=== PATIENT | male | born 1955 | race Two or more races ===

== ENCOUNTER 2022-03-09 23:50 | Inpatient (IN) | payer MEDICARE, OTHER ==
[~2022-03-09] VITALS: Ht 170.2 cm; Wt 76.9 kg
--- NOTE | 2022-03-10 00:05 | NUR ---
TO ER BED 10. [id number] FROM [facility] FOR L SIDED, NON- RADIATING BURNING CP X 3 DAYS. PT IS ALERT AND ORIENTED. RR EVEN AND NONLABORED. CONNECTED TO POX AND HEART MONITOR.
--- NOTE | 2022-03-10 00:17 | NUR ---
IV LINE ESTABLISHED, RHAND 20G
--- NOTE | 2022-03-10 00:17 | NUR ---
PT AMBULATED TO BATHROOM, STEADY GAIT NOTED
--- NOTE | 2022-03-10 00:17 | NUR ---
COVID SWAB COLLECTED
--- NOTE | 2022-03-10 00:18 | NUR ---
XRAY AT BEDSIDE
[2022-03-10] MEDS ORDERED: NITROGLYCERIN PACKET 1 GM PACKET ONE (00:24)
[2022-03-10] MEDS ORDERED: FAMO20TA8 PO (00:27)
[2022-03-10] MEDS ORDERED: DAPA10TA PO (00:27)
[2022-03-10] MEDS ORDERED: PANT40TA49 PO (00:27)
[2022-03-10] MEDS ORDERED: APIX5TAB PO (00:27)
[2022-03-10] MEDS ORDERED: ROSU40TA PO (00:27)
[2022-03-10] MEDS ORDERED: AMIO200T5 PO (00:27)
[2022-03-10] MEDS ORDERED: CARV25TA2 PO (00:27)
[2022-03-10] MEDS ORDERED: TAMS-12 PO (00:27)
[2022-03-10] MEDS ORDERED: POTA20TA83 PO (00:27)
[2022-03-10] MEDS ORDERED: SPIR25TA6 PO (00:27)
[2022-03-10] MEDS ORDERED: CLOP75TA15 PO (00:27)
[2022-03-10] MEDS ORDERED: EZET10TA16 PO (00:27)
[2022-03-10] MEDS ORDERED: FURO40TA5 PO (00:27)
[2022-03-10] MEDS ORDERED: SACU1TAB PO (00:27)
[2022-03-10] MEDS ORDERED: NITROGLYCERIN PACKET 1 GM PACKET TOP ONE (00:30)
--- NOTE | 2022-03-10 00:43 | NUR ---
DANIEL FROM [facility] : [phone]
[2022-03-10 00:51] LABS: BASOPHILS # (AUTO) 0.2 K/uL (0.0-0.2); BASOPHILS % (AUTO) 2.1 % (0.0-2.0); EOSINOPHILS % (AUTO) 1.4 % (0.0-6.0); HEMATOCRIT 46 % (39-51); HEMOGLOBIN 14.8 g/dL (13.5-17.5); LYMPHOCYTES # (AUTO) 1.4 K/uL (0.8-4.8); LYMPHOCYTES % (AUTO) 16.3 % (20.0-44.0); MEAN CORPUSCULAR HGB CONC 32 g/dl (31.0-36.0); MEAN CORPUSCULAR VOLUME 86 fL (80-96); MONOCYTES # (AUTO) 0.6 K/uL (0.1-1.30); MONOCYTES % (AUTO) 7.5 % (2.0-12.0); NEUTROPHILS # (AUTO) 6.1 K/uL (1.8-8.9); NEUTROPHILS % (AUTO) 72.7 % (43.0-81.0); PLATELET COUNT (AUTO) 259 K/uL (150-450); RED BLOOD CELL COUNT(AUTO) 5.37 MIL/uL (4.5-6.0); WHITE BLOOD COUNT (AUTO) 8.5 K/uL (4.3-11.0)
[2022-03-10 00:58] LABS: CALCIUM, SERUM 8.3 mg/dL (8.5-10.1); CARBON DIOXIDE 21 mmol/L (21-32); CHLORIDE 109 mmol/L (98-107); CREATININE 1.4 mg/dL (0.6-1.3); GLUCOSE 153 mg/dL (74-106); POTASSIUM 3.5 mmol/L (3.5-5.1); SODIUM SERUM 139 mmol/L (136-145); UREA NITROGEN, BLOOD 24 mg/dL (7-18)
[2022-03-10] MEDS ORDERED: ONDANSETRON HCL/PF 4 MG/2 ML VIAL IVP PRN (02:30)
[2022-03-10] MEDS ORDERED: ACETAMINOPHEN 325 MG TABLET PO PRN (02:30)
[2022-03-10] MEDS ORDERED: MORPHINE SULFATE INJ 2 MG/ML DISP.SYRIN IV PRN (02:30)
[2022-03-10] MEDS ORDERED: Z GUARD REMEDY 4 OZ OINT TP PRN (02:30)
[2022-03-10] MEDS ORDERED: ZOLPIDEM TARTRATE 5 MG TABLET PO PRN (02:30)
--- NOTE | 2022-03-10 03:11 | NUR ---
REPORT GIVEN TO CARMINE THOMSON FOR JORGE
--- NOTE | 2022-03-10 03:20 | NUR ---
PATIENT IS GETTING TRANSFERRED TO 311-1 UNDER ACLS
--- NOTE | 2022-03-10 03:55 | NUR ---
MEDICAL CODERPRIVATE DUTY NURSE NOTE PATIENT ARRIVED FROM ER, ALERT/ORIENTED X 4, PT ABLE TO MAKE NEEDS KNOWN. PATIENT AMBULATED TO BED WITH STEADY GAIT USING CANE. PATIENT STABLE ON RA, NO S/S OF DISTRESS OR SOB NOTED, BREATHING EVEN AND UNLABORED. PATIENT PLACED ON EXTERNAL COMPOSING MACHINE OPERATOR READING V-PACING, HR: 61, PATIENT HAS PACEMAKER. PATIENT REPORTS MEDICAL HX OF STROKE, CAD, CABG, STENTS X 4, PACEMAKER, A. FIB. PATIENT STATES HE WAS RECENTLY HOSPITALIZED THIS MONTH FOR UTI. IV ACCESS ON RIGHT HAND #20G INTACT AND FLUSHING WELL, SALINE LOCKED. ALL BELONGINGS DOCUMENTED, PATIENT HAS $2450 GARCÍA IN [employer], OFFERED TO PLACE IN [place] BUT PATIENT REFUSED AND STATED HE WILL KEEP WITH HIM AND HAVE SOMEONE COME PICK IT UP TODAY. PATIENT NOT VACCINATED FOR COVID, FLU OR PNA BY CHOICE, OFFERED FLU SHOT BUT PATIENT REFUSED. PATIENT REFUSED SKIN ASSESSMENT, STATED HE DOESN'T HAVE ANY WOUNDS. ORIENTED PATIENT TO ROOM AND HOW TO USE CALL LIGHT. SAFETY MEASURES IN PLACE: CALL LIGHT WITHIN REACH, SIDE RAILS UP X 2, BED LOCKED IN LOWEST POSITION. WILL CONTINUE TO MONITOR PATIENT
[2022-03-10 06:30] LABS: BASOPHILS % (AUTO) 0.4 % (0.0-2.0); EOSINOPHILS % (AUTO) 1.9 % (0.0-6.0); HEMATOCRIT 44 % (39-51); HEMOGLOBIN 14.1 g/dL (13.5-17.5); LYMPHOCYTES # (AUTO) 1.7 K/uL (0.8-4.8); MEAN CORPUSCULAR HGB CONC 33 g/dl (31.0-36.0); MEAN CORPUSCULAR VOLUME 85 fL (80-96); MONOCYTES # (AUTO) 0.7 K/uL (0.1-1.30); MONOCYTES % (AUTO) 8.9 % (2.0-12.0); NEUTROPHILS % (AUTO) 65.8 % (43.0-81.0); PLATELET COUNT (AUTO) 257 K/uL (150-450); RED BLOOD CELL COUNT(AUTO) 5.13 MIL/uL (4.5-6.0); WHITE BLOOD COUNT (AUTO) 7.6 K/uL (4.3-11.0)
--- NOTE | 2022-03-10 06:32 | NUR ---
BUTT MAKER CLOSING NOTE PATIENT SLEEPING IN BED, ALERT/ORIENTED X 4, PT ABLE TO MAKE NEEDS KNOWN. PT STABLE ON RA, NO S/S OF DISTRESS OR SOB NOTED, BREATHING EVEN AND UNLABORED. PATIENT ON EXTERNAL CONCRETE BUCKET HOOKER READING V-PACING, HR: 60. IV ACCESS ON RIGHT HAND #20G INTACT AND SALINE LOCKED. PATIENT AMBULATORY WITH CANE, STEADY GAIT. SAFETY MEASURES IN PLACE: CALL LIGHT WITHIN REACH, SIDE RAILS UP X 2, BED LOCKED IN LOWEST POSITION. WILL ENDORSE TO DAYSHIFT RN FOR CONTINUITY OF CARE
[2022-03-10 07:26] LABS: BILIRUBIN,TOTAL 0.4 mg/dL (0.2-1.0); CALCIUM, SERUM 8.2 mg/dL (8.5-10.1); CREATININE 1.4 mg/dL (0.6-1.3); MAGNESIUM 2.5 mg/dL (1.8-2.4); POTASSIUM 3.4 mmol/L (3.5-5.1); TOTAL PROTEIN, SERUM 6.1 g/dL (6.4-8.2)
[2022-03-10] MEDS: PANTOPRAZOLE 40 MG TABLET.DR PO SCH (07:37)
--- NOTE | 2022-03-10 07:39 | NUR ---
NEWS AGENT OPENING NOTE PATIENT AWAKE IN BED, ALERT/ORIENTED X 4, PT ABLE TO MAKE NEEDS KNOWN. PT STABLE ON RA, NO S/S OF DISTRESS OR SOB NOTED, BREATHING EVEN AND UNLABORED. PATIENT ON EXTERNAL DIESEL TRUCK DRIVER READING V-PACING, HR ON 60'S. IV ACCESS ON RIGHT HAND #20G INTACT AND SALINE LOCKED. PATIENT AMBULATORY WITH CANE, STEADY GAIT. SAFETY MEASURES IN PLACE: CALL LIGHT WITHIN REACH, SIDE RAILS UP X 2, BED LOCKED IN LOWEST POSITION. WILL CONTINUE TO MONITOR.
[2022-03-10] MEDS ORDERED: TIZA2CAP PO (07:50)
[2022-03-10] MEDS ORDERED: ALBU18HF2 IH (07:50)
[2022-03-10] MEDS ORDERED: GEMTESA PO (07:50)
[2022-03-10] MEDS ORDERED: NITR0.4T48 SL (07:50)
[2022-03-10 08:00] VITALS: BP 105/64
[2022-03-10] MEDS: EZETIMIBE 10 MG TABLET PO SCH (09:07)
[2022-03-10] MEDS: POTASSIUM CHLORIDE 20 MEQ TAB.PRT.SR PO SCH (09:07)
[2022-03-10] MEDS: SACUBITRIL/VALSARTAN 1 EACH TABLET PO SCH ×2 (09:07→16:41)
[2022-03-10] MEDS: CLOPIDOGREL BISULFATE 75 MG TABLET PO SCH (09:07)
[2022-03-10] MEDS: ATORVASTATIN 40 MG TABLET PO SCH (09:07)
[2022-03-10] MEDS: SPIRONOLACTONE 25 MG TABLET PO SCH (09:07)
[2022-03-10] MEDS: FUROSEMIDE 40 MG TABLET PO SCH (09:08)
[2022-03-10] MEDS: APIXABAN 5 MG TABLET PO SCH ×2 (09:11→21:27)
[2022-03-10] MEDS: AMIODARONE HCL 200 MG TABLET PO SCH (09:58)
[2022-03-10] MEDS: CARVEDILOL 12.5 MG TABLET PO SCH ×2 (09:59→21:26)
[2022-03-10 12:00] VITALS: BP 113/65
[2022-03-10] MEDS: NITROGLYCERIN PACKET 1 GM PACKET TOP SCH (12:15)
[2022-03-10 16:00] VITALS: BP 113/67
--- NOTE | 2022-03-10 18:34 | NUR ---
CHILI MAKER CLOSING NOTE PATIENT AWAKE IN BED, ALERT/ORIENTED X 4, PT ABLE TO MAKE NEEDS KNOWN. PT STABLE ON RA, NO S/S OF DISTRESS OR SOB NOTED, BREATHING EVEN AND UNLABORED. PATIENT ON EXTERNAL EXCEPTIONAL CHILDREN'S TEACHER READING V-PACING, HR: 60. IV ACCESS ON RIGHT HAND #20G INTACT AND SALINE LOCKED. PATIENT AMBULATORY WITH CANE, STEADY GAIT. ALL MEDS GIVEN. KEPT COMFORTABLE. SAFETY MEASURES IN PLACE: CALL LIGHT WITHIN REACH, SIDE RAILS UP X 2, BED LOCKED IN LOWEST POSITION. WILL ENDORSE TO DAYSHIFT RN FOR CONTINUITY OF CARE
--- NOTE | 2022-03-10 19:30 | NUR ---
SECONDARY SPECIAL EDUCATION TEACHER NOTES RECEIVED LYING ON BED,CALM AND QUIET WATCHING TV PROGRAM,A/O X4,BREATHING NON LABORED,DENIES CHEST PAIN AT THE MOMENT,SALINE LOCK RIGHT HAND INTACT AND PATENT.WITH PACE MAKER ON LEFT CHEST WALL PLACE 2 YEARS AGO,GOT FIXED 1 YEAR AGO,V- PACING ON TELE MONITOR.WILL CONTINUE TO MONITOR STATUS.CALL LIGHT IN REACH,NEEDS ANTICIPATED.
[2022-03-10 19:42] LABS: BILIRUBIN,URINE NEGATIVE (NEGATIVE); COLOR,URINE YELLOW (YELLOW); LEUKOCYTE ESTERASE ,URINE NEGATIVE (NEGATIVE); NITRITE, URINE NEGATIVE (NEGATIVE); PH,URINE 5.5 (5.0-8.0); PROTEIN,URINE NEGATIVE (NEGATIVE); UGLUCOSE 3+ mg/dL (NEGATIVE); UROBILINOGEN,URINE 0.2 EU/dL (0.2)
[2022-03-10 20:00] VITALS: BP 128/75
[2022-03-10 20:06] LABS: BACTERIA,URINE None seen /HPF (None Seen); RBC,URINE 0-2 /HPF (0-2); WBC,URINE 0-2 /HPF (0-3)
[2022-03-10 20:07] LABS: MUCUS,URINE Few /LPF (None Seen)
[2022-03-10] MEDS ORDERED: TAMSULOSIN 0.4 MG CAP.SR.24H PO SCH (22:00)
[2022-03-11] VITALS: BP 105/58
[2022-03-11] MEDS: NITROGLYCERIN PACKET 1 GM PACKET TOP SCH ×2 (00:18→11:13)
--- NOTE | 2022-03-11 06:36 | NUR ---
MILIEU MANAGER NOTES FAIRLY RESTED AT NIGHT.MED COMPLIANT.NO COMPLAINTS OF CHEST PAIN THRU OUT SHIFT.CALL LIGHT IN REACH,NEEDS ATTENDED.
[2022-03-11 06:37] LABS: CALCIUM, SERUM 8.4 mg/dL (8.5-10.1); CREATININE 1.3 mg/dL (0.6-1.3); MAGNESIUM 2.4 mg/dL (1.8-2.4); PHOSPHORUS 3.8 mg/dL (2.5-4.9); POTASSIUM 3.7 mmol/L (3.5-5.1)
[2022-03-11 06:41] LABS: BASOPHILS % (AUTO) 0.2 % (0.0-2.0); EOSINOPHILS % (AUTO) 1.6 % (0.0-6.0); HEMATOCRIT 44 % (39-51); HEMOGLOBIN 14.4 g/dL (13.5-17.5); LYMPHOCYTES # (AUTO) 1.7 K/uL (0.8-4.8); LYMPHOCYTES % (AUTO) 20.2 % (20.0-44.0); MEAN CORPUSCULAR HGB CONC 33 g/dl (31.0-36.0); MEAN CORPUSCULAR VOLUME 84 fL (80-96); MONOCYTES # (AUTO) 0.7 K/uL (0.1-1.30); MONOCYTES % (AUTO) 8.1 % (2.0-12.0); NEUTROPHILS # (AUTO) 5.8 K/uL (1.8-8.9); NEUTROPHILS % (AUTO) 69.9 % (43.0-81.0); PLATELET COUNT (AUTO) 249 K/uL (150-450); RED BLOOD CELL COUNT(AUTO) 5.21 MIL/uL (4.5-6.0); WHITE BLOOD COUNT (AUTO) 8.2 K/uL (4.3-11.0)
[2022-03-11 08:00] VITALS: BP 103/60
[2022-03-11] MEDS: SPIRONOLACTONE 25 MG TABLET PO SCH (08:28)
[2022-03-11] MEDS: POTASSIUM CHLORIDE 20 MEQ TAB.PRT.SR PO SCH (08:29)
[2022-03-11] MEDS: CLOPIDOGREL BISULFATE 75 MG TABLET PO SCH (08:29)
[2022-03-11] MEDS: AMIODARONE HCL 200 MG TABLET PO SCH (08:29)
[2022-03-11] MEDS: FUROSEMIDE 40 MG TABLET PO SCH (08:29)
[2022-03-11] MEDS: CARVEDILOL 12.5 MG TABLET PO SCH (08:29)
[2022-03-11] MEDS: PANTOPRAZOLE 40 MG TABLET.DR PO SCH (08:29)
[2022-03-11] MEDS: EZETIMIBE 10 MG TABLET PO SCH (08:29)
[2022-03-11] MEDS: ATORVASTATIN 40 MG TABLET PO SCH (08:29)
[2022-03-11] MEDS: APIXABAN 5 MG TABLET PO SCH (08:30)
[2022-03-11] MEDS ORDERED: DAPAGLIFLOZIN PROPANEDIOL 5 MG TABLET PO SCH (09:00)
[2022-03-11] MEDS: SACUBITRIL/VALSARTAN 1 EACH TABLET PO SCH ×2 (09:44→16:44)
[2022-03-11 11:13] VITALS: BP 110/65
[2022-03-11] MEDS ORDERED: MUPIROCIN OINT 2% 22 GM TUBE NS SCH (21:00)
== END 2022-03-11 18:00 | DRG 205 ==
LOC: ER 23:53 → TELE 03-10 03:06
PROVIDERS: ADMIT Nurse Practitioner Family; ATTEND Internal Medicine
DX: M94.0 Chondrocostal junction syndrome [Tietze] (principal); N17.0 Acute kidney failure with tubular necrosis; I48.20 Chronic atrial fibrillation, unspecified; I25.10 Atherosclerotic heart disease of native coronary artery without angina pectoris; Z95.5 Presence of coronary angioplasty implant and graft; Z20.822 Contact with and (suspected) exposure to COVID-19; Z95.1 Presence of aortocoronary bypass graft; Z86.73 Personal history of transient ischemic attack (TIA), and cerebral infarction without residual deficits; Z95.810 Presence of automatic (implantable) cardiac defibrillator; I50.9 Heart failure, unspecified; I11.0 Hypertensive heart disease with heart failure; Z79.01 Long term (current) use of anticoagulants; Z79.02 Long term (current) use of antithrombotics/antiplatelets; R74.01 Elevation of levels of liver transaminase levels; Z79.51 Long term (current) use of inhaled steroids; E87.6 Hypokalemia; E88.09 Other disorders of plasma-protein metabolism, not elsewhere classified; E78.5 Hyperlipidemia, unspecified; Z79.899 Other long term (current) drug therapy; R73.9 Hyperglycemia, unspecified
CPT/HCPCS: 36415; 71045-TC; 76870-TC; 80048-TC; 80053-TC; 80061-TC; 81001; 83735-TC; 84100-TC; 84484-TC; 85025-TC; 87081-TC; 93307-TC; 97110-TC; 97116-TC; 97530-TC; C9803; G0378